=== PATIENT | male | born 1945 | race Caucasian/White ===

== ENCOUNTER → 2017-08-11 | Day surgery (SDC) | payer OTHER ==
[~2017-08-11] VITALS: Ht 180.3 cm; Wt 72.5 kg
[~2017-08-11] MED LIST: ACETAMINOPHEN/HYDROcodone 325 MG/5 MG TAB ONE; AMIT10TA6 PO; CHLORHEXIDINE GLUCONATE 2 % 1 PACK (2 CLOTHS) TOPICAL PRN; CLINDAMYCIN 600 MG/NS PREMIX 50 ML IV PRN; LACTATED RINGER'S 1000 ML IV PRN; LIDOCAINE 1%/EPINEPHrine 1:100,000 SOLN 30 ML VIAL ONE; LORA-474 PO; METOPROLOL TARTRATE 25 MG TAB PO PRN; MORPHINE SULFATE 4 MG/ML INJ ONE; OMEP20TA93 PO; OXYMETAZOLINE HCL 0.05% 15 ML NASAL SPRAY ONE; POVIDONE IODINE 5% (ANTISEPSIS KIT) 4 APPLICATIONS EACH NARE PRN; SODIUM CHLORID 0.9% 500 ML IV PRN
[2017-08-11 12:10] VITALS: BP 135/75; PULSE 51; RESP 16; TEMP 97.4; O2SAT 98
--- NOTE | 2017-08-12 12:56 | EKG ---
Date Performed: 08/11/2017 Time Performed: 07:52:32 PTAGE: 72 years EKG: SINUS BRADYCARDIA BORDERLINE ECG INTERPRETATION BASED ON A DEFAULT AGE OF 40 YEARS NO PREVIOUS TRACING DOCTOR: Calixto Ling Interpretating Date/Time 08/12/2017 12:55:51
--- NOTE | 2017-08-16 13:53 | MP ---
cc: VERONICA BARKER M.D. DATE OF SURGERY: 08/11/[address] Veronica Barker PREOPERATIVE DIAGNOSIS 1. Chronic pansinusitis. 2. Sinonasal polyposis. 3. Nasal airway obstruction. 4. Nasal septal deviation. 5. Hypertrophy of inferior turbinates. POSTOPERATIVE DIAGNOSIS 1. Chronic pansinusitis. 2. Sinonasal polyposis. 3. Nasal airway obstruction. 4. Nasal septal deviation. 5. Hypertrophy of inferior turbinates. OPERATION PERFORMED 1. Open repair nasal septal fracture. 2. Bilateral submucosal resection of inferior turbinates. 3. Bilateral endoscopic total ethmoidectomy. 4. Bilateral endoscopic maxillary antrostomy with removal of maxillary sinus tissue. 5. Bilateral endoscopic exploration of frontal sinus ducts using balloon sinuplasty technique. 6. Bilateral endoscopic sphenoidotomy with removal of sphenoid sinus tissue. INDICATIONS Documented in the history and physical. DESCRIPTION OF OPERATION The patient was taken to OR #2 and placed in the supine position. Following induction of general anesthesia and intubation, the nose was packed bilaterally with cotton pledgets saturated in 0.05% Oxymetazoline and the nasal septal mucosa and the inferior turbinates were then injected with a total of 8 mL of 1% Xylocaine with epinephrine 1:100,000. He was then prepped and draped for surgery. Packing was removed and a lizeth-transfixion incision was made in the left nasal vestibule. Through this incision the septal mucosa was elevated bilaterally as far as the junction of the bony cartilaginous septum. This revealed the quadrangular cartilage which showed evidence of old septal fracture and sharp deviation leftward along a horizontal fracture line which obstructed the left nasal airway. A cumulative area of 2 x 2.5 cm of the quadrangular cartilage was removed using a Renata elevator and Magana Pepe forceps. This was done preserving 1.5 cm dorsal and caudal cartilaginous struts. The caudal cartilaginous strut was completely mobilized and returned to the midline above the maxillary crest. When this was completed the mucosa was elevated from the bony septum and the maxillary crest. The bony septum was removed using Magana Pepe forceps and the Stefan septal forceps. The maxillary crest was removed using a 6-mm [place] chisel, its anterior and including the anterior nasal spine was preserved during this process. The incision was then closed with a running suture of 4-0 Chromic and the mucosal layers of septum were approximated to each other with a quilting stitch of 4-0 plain technique. The inferior turbinates were addressed next. A stab incision was made on the anterior end of the inferior turbinates and through this incision using a [place] elevator the submucosa pocket was developed in the soft tissue medial to the conchal bone. The power microdebrider with the 2 mm blade was then advanced into the pocket and it was activated as it was withdrawn, removing submucosal soft tissue. The blade was then returned into the pocket and withdrawn again this time with the bipolar cautery activated to control bleeding. This was done on both of the inferior turbinates and the remnants of the inferior turbinates were then we re-lateralized to the lateral nasal wall. The remainder of the operation was completed using endoscopic visualization. Additional injections of lidocaine and epinephrine were made into the attachments of the middle turbinates as well as the ethmoid cells bilaterally. Left side was addressed first beginning with amputation of the middle turbinate using through cutting [place] forceps and the power microdebrider. The uncinate process was then removed and exposing the ethmoid bulla, the bulla was bluntly penetrated and the anterior and posterior ethmoid cells were exonerated using blunt and power dissection. They were removed of their bony septations as well as polypoid mucosa and mucopurulent material. This was carried back as far as the rostrum of the sphenoid and the superior turbinate was preserved during this process. When this was completed the maxillary ostium was enlarged using a 3-mm olive tipped suction followed by the Stammberger forceps and the power debrider. The cavity was then debrided of mucopurulent material and polypoid tissue. This was all included in the specimen labeled left sinus contents. When this was done the sphenoid sinus was addressed. The rostrum was bluntly penetrated through the nasal vault as well as through the posterior ethmoids and the cavity was cleaned using 0 degree scope and the power microdebrider. The left side was then irrigated and suctioned and packed with cotton pledgets saturated in Oxymetazoline. These remained in place while the right side was operated in the same fashion, first with removal of the middle turbinate followed by exoneration of the anterior and posterior cells, enlargement of the maxillary ostium and debridement of the cavity and then enlarging the sphenoid ostium and debridement of that cavity. This side was also then irrigated and packed with the cotton pledgets. These remained in place while the balloon sinuplasties were completed. Started with the left side the guidewire was advanced into the frontal sinus. The balloon was then advanced over the wire and inflated at three levels up to a pressure of 12 atmospheres. The balloon was removed and the frontal duct was debrided of a few fragments of bone and polypoid tissue and verified patent all the way into the frontal sinus using a 70 degree scope. The right frontal duct was then operated in the same fashion with the same findings. At this point all the packing was removed and was replaced within the sinus cavities using Stammberger sinus foam. The inferior one half of the nose was then packed bilaterally with 5.5 cm Rapid Rhino packs, each inflated with 5 mL of air. The procedure was then terminated. The patient was reversed from anesthesia and taken to recovery in good condition. There were no complications. Blood loss was 300 mL. MD JOAQUÍN Kim/GIDEON /11:58 AM /1:16 PM
== END | disposition home or self-care (01) ==
LOC: PHSDC 06:39
PROVIDERS: ATTEND Otolaryngology
DX: J32.4 Chronic pansinusitis (principal); J34.2 Deviated nasal septum; J34.3 Hypertrophy of nasal turbinates; J33.8 Other polyp of sinus; J34.89 Other specified disorders of nose and nasal sinuses; S02.2XXA Fracture of nasal bones, initial encounter for closed fracture; Z01.810 Encounter for preprocedural cardiovascular examination
CPT/HCPCS: 00160; 30140; 30520; 31255; 88305; 88311; 93005; J2270; J7120